=== PATIENT | male | born 1960 | race Caucasian/White ===

== ENCOUNTER 2016-04-08 11:13 | Emergency (ER) | payer BC ==
[~2016-04-08] VITALS: Ht 172.7 cm; Wt 78.6 kg
[~2016-04-08 11:13] MED LIST: NOHOMEMEDS
[2016-04-08 11:17] VITALS: BP 162/97
[2016-04-08] MEDS ORDERED: KEFLEX500 MG PO (12:17)
[2016-04-08] MEDS ORDERED: BACTRIM,SEPT1 TABLET PO (12:17)
== END 2016-04-08 12:55 | disposition home or self-care (01) ==
LOC: EME 11:13
DX: S81.812A Laceration without foreign body, left lower leg, initial encounter (principal); W29.3XXA Contact with powered garden and outdoor hand tools and machinery, initial encounter; Y93.89 Activity, other specified; Z23 Encounter for immunization; I10 Essential (primary) hypertension
CPT/HCPCS: 99281; 99284

== ENCOUNTER 2016-05-06 22:06 | Emergency (ER) | payer BC ==
[~2016-05-06] VITALS: Ht 172.7 cm; Wt 78.8 kg
[~2016-05-06 22:06] MED LIST changes: +BACTRIM,SEPT1 TABLET PO; +KEFLEX500 MG PO
[2016-05-06 22:33] VITALS: BP 135/72
== END 2016-05-06 23:30 | disposition left against medical advice (07) ==
LOC: EME 22:06
DX: S99.911A Unspecified injury of right ankle, initial encounter (principal); Z53.21 Procedure and treatment not carried out due to patient leaving prior to being seen by health care provider
CPT/HCPCS: 73610